=== PATIENT | female | born 1940 | race American Indian/Alaskan Native ===

== ENCOUNTER 2016-10-02 05:40 | Inpatient (IN) | payer MEDICARE, BC, OTHER ==
[~2016-10-02] VITALS: Ht 167.6 cm; Wt 70.5 kg
[2016-10-02 06:27] VITALS: BP 171/96
[2016-10-02] MEDS ORDERED: LACTATED RINGERS 1,000 ML IV SCH (06:27)
[2016-10-02] MEDS ORDERED: FENTANYL PF 250 MCG/5ML ONE (06:38)
[2016-10-02] MEDS ORDERED: MIDAZOLAM 1 MG/ML, 2ML ONE (06:38)
[2016-10-02] MEDS ORDERED: LISI-170 PO (06:42)
[2016-10-02] MEDS ORDERED: AMLO2.5T PO (06:42)
[2016-10-02] MEDS ORDERED: ERGO500017 PO (06:42)
[2016-10-02] MEDS ORDERED: CALC-183 PO (06:42)
[2016-10-02] MEDS ORDERED: PRED5TAB PO (06:42)
[2016-10-02] MEDS ORDERED: LEVO75TA5 PO (06:42)
[2016-10-02] MEDS ORDERED: FEXO180T5 PO (06:42)
[2016-10-02] MEDS ORDERED: LIDOCAINE 1%, 2ML ONE (06:43)
[2016-10-02] MEDS ORDERED: BUPIVACAINE/PF-EPI 0.5% 1:200K ONE (06:48)
[2016-10-02] MEDS ORDERED: BACITRACIN 50,000 UNIT ONE (06:48)
[2016-10-02] MEDS ORDERED: THROMBIN 5,000 UNIT VIAL TP ONE (06:48)
[2016-10-02] MEDS ORDERED: LIDOCAINE 1%, 2ML SQ PRN (07:00)
[2016-10-02] MEDS ORDERED: HYDROCORTISONE 100 MG INJ. ONE (07:15)
[2016-10-02] MEDS ORDERED: MEPERIDINE/PF 25MG/0.5ML IVPush PRN (07:30)
[2016-10-02] MEDS ORDERED: ONDANSETRON 2MG/ML, 2ML IVPush PRN (07:30)
[2016-10-02] MEDS ORDERED: OXYcodone 5 MG/5 ML ORAL.SOL UDC PO PRN (07:30)
[2016-10-02] MEDS ORDERED: METOCLOPRAMIDE 5 MG/ML, 2ML IV PRN (07:30)
[2016-10-02] MEDS ORDERED: LABETALOL 5MG/ML, 20ML IV PRN (07:30)
[2016-10-02] MEDS ORDERED: FENTANYL PF 100 MCG/2ML IV PRN (07:30)
[2016-10-02] MEDS ORDERED: hydrALAzine 20 MG/ML, 1ML IV PRN (07:30)
[2016-10-02] MEDS ORDERED: PROMETHAZINE 25 MG/ML, 1ML IV PRN (07:30)
[2016-10-02] MEDS ORDERED: ACETAMINOPHEN 325 MG TABLET PO PRN (07:30)
[2016-10-02] MEDS ORDERED: HYDROmorphone 1 MG/ML, 1ML IV PRN (07:30)
[2016-10-02] MEDS ORDERED: ACETAMINOPHEN 650 MG/20.3 ML UDC ONE (10:07)
[2016-10-02] MEDS ORDERED: FENTANYL PF 100 MCG/2ML ONE (10:07)
[2016-10-02] MEDS ORDERED: OXYcodone 5 MG/5 ML ORAL.SOL UDC ONE (10:07)
[2016-10-02] MEDS ORDERED: HYDROmorphone 1 MG/ML, 1ML ONE (10:07)
[2016-10-02] MEDS ORDERED: HYDROmorphone 2 MG/ML, 1ML IM PRN (11:30)
[2016-10-02] MEDS ORDERED: HYDROmorphone 2MG TABLET PO PRN (11:30)
[2016-10-02] MEDS ORDERED: MAGNESIUM HYDROXIDE 8%, 30ML UDC PO PRN (12:00)
[2016-10-02] MEDS ORDERED: DIPHENHYDRAMINE 50 MG/ML, 1ML IM PRN (12:00)
[2016-10-02] MEDS ORDERED: HYDROcodone/APAP 5/325 TABLET PO PRN (12:00)
[2016-10-02] MEDS ORDERED: BISACODYL 10 MG SUPP PR PRN (12:00)
[2016-10-02] MEDS ORDERED: DIPHENHYDRAMINE 50 MG/ML, 1ML IVPush PRN (12:00)
[2016-10-02] MEDS ORDERED: PROMETHAZINE 25 MG/ML, 1ML IM PRN (12:00)
[2016-10-02] MEDS ORDERED: DIPHENHYDRAMINE 50 MG CAPSULE PO PRN (12:00)
[2016-10-02] MEDS ORDERED: ONDANSETRON 2MG/ML, 2ML IV PRN (12:00)
[2016-10-02] MEDS: NS + 20MEQ KCL 1,000 ML IV SCH (12:33)
[2016-10-02] MEDS: LORATADINE 10 MG TABLET PO SCH (12:33)
[2016-10-02] MEDS: AMLODIPINE 2.5 MG TABLET PO SCH (12:33)
[2016-10-02] MEDS: CEFAZOLIN PMX 1GM/50ML 50 ML IVPB SCH ×2 (15:42→23:02)
[2016-10-02] MEDS ORDERED: GLYCOPYRROLATE 0.2MG/1ML ONE (16:31)
[2016-10-02] MEDS ORDERED: ROCURONIUM 10 MG/ML ONE (16:31)
[2016-10-02] MEDS ORDERED: NEOSTIGMINE 1 MG/ML, 10ML ONE (16:31)
[2016-10-02] MEDS ORDERED: PHENYLEPHRINE 10 MG/ML ONE (16:31)
[2016-10-02] MEDS ORDERED: PROPOFOL 10 MG/ML, 20ML ONE (16:31)
[2016-10-02] MEDS ORDERED: ONDANSETRON 2MG/ML, 2ML ONE (16:31)
[2016-10-02] MEDS ORDERED: CEFAZOLIN 1,000 MG ONE (16:31)
[2016-10-02 19:55] VITALS: BP 103/68
[2016-10-02 20:08] VITALS: BP 105/63
[2016-10-02] MEDS: CALCIUM/VITAMIN D3 250-125 TABLET PO SCH (20:10)
[2016-10-02] MEDS: LISINOPRIL 20 MG TABLET PO SCH (20:14)
[2016-10-02 20:15] VITALS: BP 103/65
[2016-10-02] MEDS: METHOCARBAMOL 750 MG TABLET PO PRN (20:22)
[2016-10-02] MEDS ORDERED: ZOLPIDEM 5MG TABLET PO PRN (21:00)
[2016-10-02] MEDS: OXYcodone/APAP 5/325MG TABLET PO PRN ×2 (22:13→22:58)
[2016-10-02 23:51] VITALS: BP 104/67
[2016-10-03] MEDS: NS + 20MEQ KCL 1,000 ML IV SCH ×2 (01:36→10:15)
[2016-10-03 03:41] VITALS: BP 99/65
[2016-10-03] MEDS: OXYcodone/APAP 5/325MG TABLET PO PRN ×3 (03:49→12:24)
[2016-10-03] MEDS: METHOCARBAMOL 750 MG TABLET PO PRN (05:06)
[2016-10-03] MEDS ORDERED: LEVOTHYROXINE 75 MCG TABLET PO SCH (06:00)
[2016-10-03 06:33] VITALS: BP 104/67
[2016-10-03] MEDS: CALCIUM/VITAMIN D3 250-125 TABLET PO SCH (07:49)
[2016-10-03] MEDS: LORATADINE 10 MG TABLET PO SCH (07:49)
[2016-10-03] MEDS: LISINOPRIL 20 MG TABLET PO SCH (07:51)
[2016-10-03] MEDS: AMLODIPINE 2.5 MG TABLET PO SCH (07:51)
[2016-10-03] MEDS ORDERED: SENNA/DOCUSATE TABLET PO SCH ×2 (09:00)
[2016-10-03] MEDS ORDERED: OXYC1TAB9 PO (11:06)
[2016-10-03] MEDS ORDERED: METH750T87 PO ×2 (11:08→11:16)
[2016-10-03] MEDS ORDERED: OXYC-229 PO (11:16)
[2016-10-03 13:44] VITALS: BP 143/83
[2016-10-08] MEDS ORDERED: ERGOCALCIFEROL 50,000 UNIT CAPSULE PO SCH (09:00)
== END 2016-10-03 14:03 | disposition home or self-care (01) | DRG 518 ==
LOC: OUT 05:40 → 4NOR 11:14 → OUT 11:44
PROVIDERS: ADMIT Neurological Surgery; ATTEND Neurological Surgery
PROC: 0SB20ZZ Excision of Lumbar Vertebral Disc, Open Approach (ICD-10-PCS; 2016-10-02)
PROC: 0SH00BZ Insertion of Interspinous Process Spinal Stabilization Device into Lumbar Vertebral Joint, Open Approach (ICD-10-PCS; 2016-10-02)
PROC: 01NB0ZZ Release Lumbar Nerve, Open Approach (ICD-10-PCS; principal; 2016-10-02 07:30)
DX: M48.06 Spinal stenosis, lumbar region (principal); M43.16 Spondylolisthesis, lumbar region; M47.26 Other spondylosis with radiculopathy, lumbar region
CPT/HCPCS: 72100; J0690; J1170; J2250; J2270; J2405; J2704; J2710; J3010; J3480; J3490; J1720; J2370; J7120; J7512